=== PATIENT | male | born 1960 | race Caucasian/White ===

== ENCOUNTER 2017-05-21 20:49 | Emergency (ER) | payer OTHER ==
[2017-05-21 21:33] LABS: ADD MAN DIFF? NO
[2017-05-21 21:35] LABS: BASOPHIL # 0.1 10^3/ul (0.0-0.1); BASOPHILS % 0.8 % (0.0-2.0); EOSINOPHILS # 0.1 10^3/ul (0.0-0.5); EOSINOPHILS % 0.7 % (0.0-7.0); HEMATOCRIT 49.2 % (42.0-52.0); HEMOGLOBIN 17.6 g/dl (14.0-18.0); LYMPHOCYTES # 2.6 10^3/ul (0.8-2.9); LYMPHOCYTES % 28.5 % (15.0-51.0); MEAN CORPUSCULAR HGB CONC 35.8 g/dl (32.0-37.0); MEAN CORPUSCULAR VOLUME 92.1 fl (82.0-101.0); MONOCYTE # 1.1 10^3/ul (0.3-0.9); MONOCYTES % 12.6 % (0.0-11.0); NEUTROPHILS % 55.8 % (39.0-77.0); PLATELET COUNT 444 10^3/UL (140-415); RED BLOOD COUNT 5.34 10^6/ul (4.70-6.10); RED CELL DISTRIBUTION WIDTH 12.1 % (11.5-14.5)
[2017-05-21] MEDS: SOD CHLORIDE 0.9% 1,000 ML IV ×2 (21:45→21:46)
[2017-05-21] MEDS: KETOROLAC 30 MG INJ IV (21:45)
[2017-05-21] MEDS: ONDANSETRON 4 MG INJ IV (21:45)
[2017-05-21] MEDS: morphine 4 MG/ML VIAL IV (21:45)
[2017-05-21 21:54] LABS: ALANINE AMINOTRANSFERASE 226 IU/L (13-69); ALBUMIN 5.1 g/dl (3.3-4.9); ALBUMIN/GLOBULIN RATIO 1.04; ALKALINE PHOSPHATASE 108 IU/L (42-121); ANION GAP 23 (8-16); ASPARTATE AMINO TRANSFERASE 106 IU/L (15-46); BILIRUBIN,INDIRECT 0.3 mg/dl (0-1.1); BILIRUBIN,TOTAL 0.3 mg/dl (0.2-1.3); BLOOD UREA NITROGEN 27 mg/dl (7-20); CALCIUM 9.8 mg/dl (8.4-10.2); CARBON DIOXIDE 21 mmol/L (21-31); CHLORIDE 101 mmol/L (97-110); CREATININE 1.76 mg/dl (0.61-1.24); GLUCOSE 85 mg/dl (70-220); LIPASE 94 U/L (23-300); POTASSIUM 4.5 mmol/L (3.5-5.1); SODIUM 140 mmol/L (135-144)
[2017-05-22] MEDS: METOCLOPRAMIDE 10 MG INJ IV (01:38)
[2017-05-22] MEDS: ONDANSETRON 4 MG INJ IV (01:38)
== END 2017-05-22 04:17 | disposition home or self-care (01) ==
LOC: E/R 05-22 04:17
DX: N28.9 Disorder of kidney and ureter, unspecified (principal); E86.0 Dehydration
CPT/HCPCS: 36415; 74176; 80053; 83690; 85025; 96374; 96375; 96376; 99285-25

== ENCOUNTER 2017-05-25 20:42 | Emergency (ER) | payer SELFPAY, OTHER | END 2017-05-25 21:52 | disposition left against medical advice (07) | LOC: E/R 20:42 | DX: Z53.21 Procedure and treatment not carried out due to patient leaving prior to being seen by health care provider (principal) ==